=== PATIENT | male | born 1990 | race African-American/Black ===

== ENCOUNTER 2019-08-09 09:37 | Emergency (ER) | payer SELFPAY ==
[~2019-08-09] VITALS: Ht 172.7 cm; Wt 74.0 kg
[2019-08-09 09:48] VITALS: BP 122/71
[2019-08-09] MEDS ORDERED: AMOXICILLIN 250 MG CAPSULE. PO ONE (10:30)
[2019-08-09] MEDS ORDERED: KETOROLAC 60 MG/2 ML VIAL. IM ONE (10:30)
[2019-08-09] MEDS ORDERED: HYDROcodone/APAP 5/325MG 1 TAB TABLET PO ONE (10:30)
[2019-08-09] MEDS ORDERED: IBUP-1060 PO (11:19)
[2019-08-09] MEDS ORDERED: TRAM100T2 PO (11:19)
[2019-08-09] MEDS ORDERED: AMOX500C PO (11:19)
--- NOTE | 2019-08-09 11:19 | PHYS DOC ---
Past Medical History Past Medical History: No Pertinent History Past Surgical History: No Surgical History Smoking Status: Never Smoker Alcohol Use: None General Adult EDM: Chief Complaint: DENTAL PROBLEM HPI: HPI: Patient is a 29 year old male presented to the ER today for evaluation of left lower dental pain and swelling for two days. Patient denied any headache, report of fever, no cough. Review of Systems: Review of Systems: Constitutional: Report of fever ,no chills. [] Eyes: Denies change in visual acuity. [] HENT: Denies nasal congestion or sore throat. Positive for dental pain. Respiratory: Denies cough or shortness of breath. [] Cardiovascular: Denies chest pain or edema. [] GI: Denies abdominal pain, nausea, vomiting, bloody stools or diarrhea. [] : Denies dysuria. [] Musculoskeletal: Denies back pain or joint pain. [] Integument: Denies rash. [] Neurologic: Denies headache, focal weakness or sensory changes. [] Endocrine: Denies polyuria or polydipsia. [] Lymphatic: Denies swollen glands. [] Psychiatric: Denies depression or anxiety. [] Heart Score: Risk Factors: Risk Factors: DM, Current or recent (<one month) smoker, HTN, HLP, family history of CAD, obesity. Risk Scores: Score 0 - 3: 2.5% MACE over next 6 weeks - Discharge Home Score 4 - 6: 20.3% MACE over next 6 weeks - Admit for Clinical Observation Score 7 - 10: 72.7% MACE over next 6 weeks - Early Invasive Strategies Current Medications: Current Medications Medications (Trade) Dose Ordered Sig/[facility] Start Time Stop Time Status Last Admin Dose Admin Acetaminophen/ Hydrocodone Bitart (Lortab 5/325) 1 tab 1X ONCE 08/09/19 10:30 08/09/19 10:31 DC 08/09/19 10:52 1 TAB Amoxicillin (Amoxil) 1,000 mg 1X ONCE 08/09/19 10:30 08/09/19 10:31 DC 08/09/19 10:52 1,000 MG Ketorolac Tromethamine (Toradol Im) 60 mg 1X ONCE 08/09/19 10:30 08/09/19 10:31 DC 08/09/19 10:53 60 MG Allergies: Allergies: Allergies Coded Allergies Type Severity Reaction Last Updated Verified No Known Drug Allergies 08/09/19 No Physical Exam: PE: Constitutional: Well developed, well nourished, no acute distress, non-toxic appearance. [] HENT: Normocephalic, atraumatic, bilateral external ears normal, oropharynx moist, no oral exudates, nose normal.Left lower jaw is swollen and tender. No trismus. There is palpable tender swollen dental abscess along the gumline of left lower 2rd and 1st molar teeth. Eyes: PERRLA, EOMI, conjunctiva normal, no discharge. [] Neck: Normal range of motion, no tenderness, supple, no stridor. [] Cardiovascular:Heart rate regular rhythm, no murmur [] Lungs & Thorax: Bilateral breath sounds clear to auscultation [] Abdomen: Bowel sounds normal, soft, no tenderness, no masses, no pulsatile masses. [] Skin: Warm, dry, no erythema, no rash. [] Back: No tenderness, no CVA tenderness. [] Extremities: No tenderness, no cyanosis, no clubbing, ROM intact, no edema. [] Neurologic: Alert and oriented X 3, normal motor function, normal sensory function, no focal deficits noted. [] Psychologic: Affect normal, judgement normal, mood normal. [] Current Patient Data: Vital Signs: Vital Signs Date Time Temp Pulse Resp B/P (MAP) Pulse Ox O2 Delivery O2 Flow Rate FiO2 08/09/19 10:52 20 99 Room Air 08/09/19 09:48 100.4 105 122/71 (88) 100.4 EKG: EKG: [] Radiology/Procedures: Radiology/Procedures: [] Course & Med Decision Making: Course & Med Decision Making Pertinent Labs and Imaging studies reviewed. (See chart for details) Dental abscess I and D was done in the ER, the area of swelling on left lower jaw was anesthesized with 6 ml of .5% marcaine, a scaple, number #11 blade was used to cut the indurated area, small amount of whitish pus was drained with blood. Bleeding was stopped with cold gauze. Patient tolerated procedure well. He was discharged home with amoxil, tramadol, ibuprofen. He will need to follow up with his dentist in a week for reevaluation . Champ Disclaimer: Champ Disclaimer: This electronic medical record was generated, in whole or in part, using a voice recognition dictation system. Departure Departure Impression: Primary Impression: Dental abscess Disposition: 01 HOME, SELF-CARE Condition: STABLE Referrals: NO PCP (PCP) PLEASE FOLLOW UP WITH DENTIST NEXT WEEK FOR REEVALUATION. Patient Instructions: Dental Abscess Scripts Tramadol Hcl (TRAMADOL HCL) 100 Mg Tbmp.24hr 100 MG PO Q6H PRN for PAIN, #20 TAB 0 Refills Prov: RADHA CURTIS DO 08/09/19 Ibuprofen (IBUPROFEN) 800 Mg Tablet 800 MG PO PRN Q8HRS PRN for PAIN, #30 TAB Prov: RADHA CURTIS DO 08/09/19 Amoxicillin (AMOXICILLIN) 500 Mg Capsule 1 CAP PO TID for 10 Days, #30 CAP Prov: RADHA CURTIS DO 08/09/19 Justicifation of Admission Dx: Justifications for Admission: Justification of Admission Dx: N/A RADHA CURTIS DO Aug 09, 2019 11:19
== END 2019-08-09 11:27 | disposition home or self-care (01) ==
LOC: ER 09:37
DX: K04.7 Periapical abscess without sinus (principal); R60.0 Localized edema; R50.9 Fever, unspecified; Z79.899 Other long term (current) drug therapy
CPT/HCPCS: 41800; 96372; 99284; J1885